=== PATIENT | male | born 1995 | race Hispanic/Latino ===

== ENCOUNTER 2023-05-02 16:59 | Emergency (ER) | payer SELFPAY ==
[~2023-05-02 16:59] MED LIST: Iopamidol-370 76% 500 ML MDV (1 ML CHARGE) ONE
[2023-05-02] MEDS ORDERED: Ondansetron PF 4 MG/2 ML Vial ONE (17:31)
[2023-05-02] MEDS ORDERED: Famotidine/PF 20 mg/2ml Vial ONE (17:31)
[2023-05-02] MEDS ORDERED: Mag-Al 1200 mg/1200 mg/30 ML UDCUP ONE (17:31)
[2023-05-02] MEDS ORDERED: Ketorolac Tromethamine 30 MG/ML VIAL ONE (17:31)
[2023-05-02 18:16] LABS: #Monocytes 0.8 thou/uL (0.11-0.59); #Neutrophils 6.3 thou/uL (1.40-6.50); %Basophils 0.3 % (0.0-1.0); %Eosinophils 0.1 % (0.0-10.0); %Lymphocytes 9.6 % (21.0-51.0); %Monocytes 10.4 % (0.0-10.0); %Neutrophils 79.3 % (42.0-75.0); Hemoglobin 14.5 g/dL (14.0-18.0); Mean Corpuscular HGB CONC 34.5 g/dL (32.0-36.0); Mean Corpuscular Hemoglobin 30.4 pg (27.0-31.0); Mean Corpuscular Volume 88.1 fl (78.0-98.0); Mean Platelet Volume 11.2 fL (7.4-10.4); Platelet Count 120 10x3/uL (130-400); RBC Distribution Width 11.7 % (11.5-14.5); Red Blood Cell (RBC) Count 4.77 mill/uL (4.70-6.10); White Blood Cell (WBC) Count 7.9 10x3/uL (4.8-10.8)
[2023-05-02 18:45] LABS: Troponin I Less than 0.010 ng/mL (< 0.028)
[2023-05-02 18:53] LABS: ALT (SGPT) 18 U/L (8-55); AST (SGOT) 13 U/L (5-34); Alkaline Phosphatase 73 U/L (40-110); Anion Gap 13 mmol/L (10-20); BUN (Urea Nitrogen) 8 mg/dL (8.9-20.6); Bilirubin, Total 0.5 mg/dL (0.2-1.2); Calcium 8.7 mg/dL (7.8-10.44); Carbon Dioxide 20 mmol/L (22-29); Chloride 102 mmol/L (98-107); Glucose 101 mg/dL (70-105); Lipase 5 U/L (8-78); Potassium 3.9 mmol/L (3.5-5.1); Protein, Total 7.2 g/dL (6.0-8.3); Sodium 131 mmol/L (136-145)
[2023-05-02 19:12] LABS: Albumin 3.9 g/dL (3.5-5.0); Calc. Creatinine Clearance 0 mL/min (70-130); Estimated GFR 121; Globulin 3.3 g/dL (2.4-3.5)
[2023-05-02 19:44] LABS: Bacteria/HPF None Seen HPF (None Seen); Bilirubin Negative (Negative); Blood, Urine Negative (Negative); CAUTI Indications for Culture Dysuria,urgency,freq; Clarity Clear (Clear); Glucose, Urine (Dipstick) Normal (Negative); Ketone, Urine 80 mg/dL (Negative); Leukocyte Negative Leu/uL (Negative); Nitrite Negative (Negative); Protein, Urine (Dipstick) 100 mg/dL (Neg-Trace); RBC/HPF 0-3 HPF (0-3); Specific Gravity, Urine 1.031 (1.002-1.036); Squamous Epithelial 0-3 HPF (0-3); Urobilinogen Greater than 12 mg/dL (Less than 2); WBC/HPF 0-3 HPF (0-3); pH, Urine 6.5 (5.0-9.0)
[2023-05-02 19:46] LABS: Urine Culture Reflex No No
[2023-05-02] MEDS ORDERED: Diazepam 5 MG TAB ONE (21:17)
== END 2023-05-02 21:28 | disposition home or self-care (01) ==
LOC: ERS 16:59
DX: R07.89 Other chest pain (principal); E86.0 Dehydration; R11.2 Nausea with vomiting, unspecified; R19.7 Diarrhea, unspecified; M54.50 Low back pain, unspecified
CPT/HCPCS: 36415; 71045; 71275; 80053; 81001; 83690; 84484; 85025; 93005; 96361; 96374; 96375; J1885; J2405; Q9967; S0028

== ENCOUNTER 2023-05-04 17:04 | Emergency (ER) | payer SELFPAY ==
[2023-05-04] MEDS ORDERED: Ketorolac Tromethamine 30 MG/ML VIAL ONE (17:27)
[2023-05-04] MEDS ORDERED: Dexameth. Sod Phosp. 10 MG/ML (CHEMO USE ONLY) ONE (18:56)
== END 2023-05-04 19:10 | disposition home or self-care (01) ==
LOC: ERS 17:04
DX: R07.89 Other chest pain (principal)
CPT/HCPCS: 71045; 96372; J1100; J1885

== ENCOUNTER 2023-05-07 02:52 | Inpatient (IN) | payer SELFPAY ==
[2023-05-07] MEDS ORDERED: Ketorolac Tromethamine 30 MG/ML VIAL ONE (03:11)
[2023-05-07 03:51] LABS: #Monocytes 1.5 thou/uL (0.11-0.59); #Neutrophils 14.5 thou/uL (1.40-6.50); %Basophils 0.2 % (0.0-1.0); %Eosinophils 0.2 % (0.0-10.0); %Lymphocytes 9.6 % (21.0-51.0); %Monocytes 8.2 % (0.0-10.0); %Neutrophils 80.8 % (42.0-75.0); Hematocrit 40.7 % (42.0-52.0); Hemoglobin 14.3 g/dL (14.0-18.0); Mean Corpuscular HGB CONC 35.1 g/dL (32.0-36.0); Mean Corpuscular Hemoglobin 30.1 pg (27.0-31.0); Mean Corpuscular Volume 85.7 fl (78.0-98.0); Mean Platelet Volume 9.9 fL (7.4-10.4); Platelet Count 245 10x3/uL (130-400); RBC Distribution Width 11.9 % (11.5-14.5); Red Blood Cell (RBC) Count 4.75 mill/uL (4.70-6.10)
[2023-05-07 04:15] LABS: ALT (SGPT) 65 U/L (8-55); AST (SGOT) 21 U/L (5-34); Albumin 3.6 g/dL (3.5-5.0); Alkaline Phosphatase 89 U/L (40-110); Anion Gap 14 mmol/L (10-20); BUN (Urea Nitrogen) 7 mg/dL (8.9-20.6); Bilirubin, Total 0.4 mg/dL (0.2-1.2); CK (CPK) 340 U/L (30-200); Calc. Creatinine Clearance 0 mL/min (70-130); Calcium 9.4 mg/dL (7.8-10.44); Carbon Dioxide 23 mmol/L (22-29); Chloride 100 mmol/L (98-107); Estimated GFR 128; Globulin 4.2 g/dL (2.4-3.5); Glucose 111 mg/dL (70-105); Potassium 3.8 mmol/L (3.5-5.1); Protein, Total 7.8 g/dL (6.0-8.3); Sodium 133 mmol/L (136-145)
[2023-05-07 04:17] LABS: Troponin I Less than 0.010 ng/mL (< 0.028)
[2023-05-07] MEDS ORDERED: Cefepime 2 GM VIAL ONE (04:51)
[2023-05-07] MEDS ORDERED: Vancomycin 1 GM/200 ML (FROZEN) BAG ONE (05:50)
[2023-05-07] MEDS ORDERED: Acetaminophen 325 MG TAB PO PRN (07:09)
[2023-05-07] MEDS ORDERED: Senokot S 8.6-50 MG TAB PO PRN (07:09)
[2023-05-07] MEDS ORDERED: Bisacodyl 10 MG SUPP PR PRN (07:09)
[2023-05-07] MEDS ORDERED: Bisacodyl 5 MG TAB PO PRN (07:09)
[2023-05-07] MEDS ORDERED: Ondansetron PF 4 MG/2 ML Vial IVP PRN (07:16)
[2023-05-07] MEDS ORDERED: Sodium Chloride 0.9% 1,000 ML IV SCH (07:30)
[2023-05-07 08:53] LABS: SARS-CoV-2 NAA Rapid Test Not Detected (NotDetected)
[2023-05-07] MEDS ORDERED: CEFAZOLIN 2 GM VIAL ONE (08:56)
[2023-05-07] MEDS ORDERED: fentaNYL 50 mcg/mL 1 mL Vial ONE ×3 (09:59→11:40)
[2023-05-07] MEDS ORDERED: Bupivacaine PF 0.5% 30 ML VIAL ONE (10:22)
[2023-05-07] MEDS ORDERED: EPINEPHrine 1 MG/ML AMP ONE (10:22)
[2023-05-07] MEDS ORDERED: fentaNYL PF 100 MCG/2 ML SYRINGE ONE (10:25)
[2023-05-07] MEDS ORDERED: Dexmedetomidine 200 MCG/2 ML VIAL ONE (10:25)
[2023-05-07] MEDS ORDERED: PROPOFOL 200 MG/20 ML VIAL ONE (10:45)
[2023-05-07] MEDS ORDERED: Iopamidol-370 76% 500 ML MDV (1 ML CHARGE) ONE (10:45)
[2023-05-07] MEDS ORDERED: Lidocaine 1% PF 5 ML VIAL ONE (10:45)
[2023-05-07] MEDS ORDERED: Ondansetron PF 4 MG/2 ML Vial ONE (10:45)
[2023-05-07] MEDS ORDERED: Ondansetron HCl/PF 4 MG/2 ML Vial IVP PRN (11:20)
[2023-05-07] MEDS ORDERED: HYDROmorphone 2 MG/ML VIAL SLOW IVP PRN (11:20)
[2023-05-07] MEDS ORDERED: PACU-Morphine 4MG/ML VIAL SLOW IVP PRN (11:20)
[2023-05-07] MEDS ORDERED: Meperidine HCl/PF 25 MG/ML VIAL SLOW IVP PRN (11:20)
[2023-05-07] MEDS ORDERED: Promethazine HCl 25 MG/ML VIAL IM PRN (11:20)
[2023-05-07] MEDS: Morphine 4 MG/ML VIAL SLOW IVP PRN (12:26)
[2023-05-07 12:43] VITALS: BMI 23.4
[2023-05-07] MEDS ORDERED: VANCOMYCIN IVPB PRN (12:54)
[2023-05-07 13:14] LABS: Amphetamine Not Detected (NotDetected); Barbiturates Screen Not Detected (NotDetected); Benzodiazepine Screen Detected (NotDetected); Cocaine Metabolite Screen Not Detected (NotDetected); Methadone Not Detected (NotDetected); Methamphetamine Not Detected (NotDetected); Opiate Screen Detected (NotDetected); Oxycodone Screen Not Detected (NotDetected); Phencyclidine (PCP) Not Detected (NotDetected); THC/Cannabinoid Screen Detected (NotDetected); Tricyclic Screen Not Detected (NotDetected)
[2023-05-07] MEDS: Vancomycin 1 GM in Premix Bag 1 BAG IVPB SCH ×2 (13:31→21:55)
[2023-05-07] MEDS: traMADol HCl 50 MG TAB PO PRN ×2 (13:32→21:56)
[2023-05-07] MEDS: metroNIDAZOLE 500 MG TAB PO SCH ×2 (16:26→21:55)
[2023-05-07] MEDS: Cefepime 2 GM in Sodium Chloride 0.9% 100 ML IVPB SCH (17:41)
[2023-05-07] MEDS: Acetaminophen 325 MG TAB PO PRN ×2 (17:41→21:55)
[2023-05-08] MEDS: Vancomycin 1 GM in Premix Bag 1 BAG IVPB SCH (05:30)
[2023-05-08] MEDS: Cefepime 2 GM in Sodium Chloride 0.9% 100 ML IVPB SCH ×2 (05:30→18:42)
[2023-05-08 05:32] LABS: #Eosinphils 0.1 thou/uL (0.0-0.7); #Monocytes 1.2 thou/uL (0.11-0.59); #Neutrophils 10.4 thou/uL (1.40-6.50); %Basophils 0.2 % (0.0-1.0); %Lymphocytes 13.3 % (21.0-51.0); %Monocytes 8.5 % (0.0-10.0); %Neutrophils 76.1 % (42.0-75.0); Hematocrit 36.6 % (42.0-52.0); Hemoglobin 12.4 g/dL (14.0-18.0); Mean Corpuscular HGB CONC 33.9 g/dL (32.0-36.0); Mean Corpuscular Volume 88.6 fl (78.0-98.0); Mean Platelet Volume 10.1 fL (7.4-10.4); Platelet Count 249 10x3/uL (130-400); RBC Distribution Width 12.1 % (11.5-14.5); Red Blood Cell (RBC) Count 4.13 mill/uL (4.70-6.10); White Blood Cell (WBC) Count 13.7 10x3/uL (4.8-10.8)
[2023-05-08] MEDS: traMADol HCl 50 MG TAB PO PRN ×2 (05:33→14:58)
[2023-05-08] MEDS: Acetaminophen 325 MG TAB PO PRN (05:35)
[2023-05-08 05:56] LABS: Vancomycin, Trough 10.3 ug/mL
[2023-05-08 06:00] LABS: ALT (SGPT) 39 U/L (8-55); AST (SGOT) 17 U/L (5-34); Albumin 3.1 g/dL (3.5-5.0); Alkaline Phosphatase 83 U/L (40-110); Anion Gap 13 mmol/L (10-20); BUN (Urea Nitrogen) 6 mg/dL (8.9-20.6); Bilirubin, Direct 0.3 mg/dL (0.1-0.3); Bilirubin, Total 0.5 mg/dL (0.2-1.2); CK (CPK) 941 U/L (30-200); CRP (Inflammatory) 21.82 mg/dL (= or < 0.5); Calc. Creatinine Clearance 137 mL/min (70-130); Carbon Dioxide 25 mmol/L (22-29); Cardiac Risk 5.8 (Less than 4.5); Chloride 100 mmol/L (98-107); Cholesterol 98 mg/dl (< 200 Desired); Estimated GFR 127; Glucose 96 mg/dL (70-105); HDL Cholesterol 17 mg/dL (>60 Neg Risk); LDL Cholesterol, Calculated 63 mg/dL; Magnesium 1.8 mg/dL (1.6-2.6); Potassium 3.8 mmol/L (3.5-5.1); Protein, Total 6.6 g/dL (6.0-8.3); Sodium 134 mmol/L (136-145); Triglycerides 89 mg/dL (Less than 150)
[2023-05-08 06:29] LABS: HIV (1/2) Antibody/Antigen Non-Reactive (NonReactive); HIV 1/2 INDEX 0.19 S/CO (<1.00); Hep C IgG Ab Non-Reactive S/CO (NonReactive); Hep C Index 0.09 S/CO (0-0.79); Thyroid Stimulating Hormone 2.5213 uIU/mL (0.35-4.94)
[2023-05-08] MEDS ORDERED: Vancomycin HCl 250 MG in Sodium Chloride 0.9% 100 ML IVPB SCH (07:45)
[2023-05-08] MEDS: metroNIDAZOLE 500 MG TAB PO SCH ×3 (09:30→20:43)
[2023-05-08] MEDS: Morphine 4 MG/ML VIAL SLOW IVP PRN ×2 (11:41→20:44)
[2023-05-08] MEDS: Sodium Chloride 0.9% 1,000 ML IV SCH ×2 (13:19→20:44)
[2023-05-08] MEDS: VANCOMYCIN 1.25 GM/250 ML BAG 1.25 GM in Premix Bag 1 BAG IVPB SCH ×2 (14:55→21:40)
[2023-05-08] MEDS ORDERED: Acetaminophen 500 MG TAB PO SCH (21:30)
[2023-05-09] MEDS: traMADol HCl 50 MG TAB PO PRN (05:08)
[2023-05-09] MEDS: Sodium Chloride 0.9% 1,000 ML IV SCH ×3 (05:09→21:24)
[2023-05-09] MEDS: Cefepime 2 GM in Sodium Chloride 0.9% 100 ML IVPB SCH (05:09)
[2023-05-09 05:15] LABS: #Basophils 0.1 thou/uL (0.0-0.2); #Eosinphils 0.1 thou/uL (0.0-0.7); #Monocytes 0.9 thou/uL (0.11-0.59); #Neutrophils 6.7 thou/uL (1.40-6.50); %Basophils 0.5 % (0.0-1.0); %Eosinophils 1.4 % (0.0-10.0); %Lymphocytes 20.9 % (21.0-51.0); %Monocytes 8.8 % (0.0-10.0); %Neutrophils 67.4 % (42.0-75.0); Hematocrit 35.7 % (42.0-52.0); Hemoglobin 12.1 g/dL (14.0-18.0); Mean Corpuscular HGB CONC 33.9 g/dL (32.0-36.0); Mean Corpuscular Hemoglobin 30.5 pg (27.0-31.0); Mean Corpuscular Volume 89.9 fl (78.0-98.0); Mean Platelet Volume 9.7 fL (7.4-10.4); Platelet Count 276 10x3/uL (130-400); Red Blood Cell (RBC) Count 3.97 mill/uL (4.70-6.10); White Blood Cell (WBC) Count 9.9 10x3/uL (4.8-10.8)
[2023-05-09 05:39] LABS: Vancomycin, Trough 13.4 ug/mL
[2023-05-09 05:41] LABS: Anion Gap 11 mmol/L (10-20); BUN (Urea Nitrogen) 5 mg/dL (8.9-20.6); CK (CPK) 714 U/L (30-200); Calc. Creatinine Clearance 134 mL/min (70-130); Calcium 9.2 mg/dL (7.8-10.44); Carbon Dioxide 25 mmol/L (22-29); Chloride 103 mmol/L (98-107); Estimated GFR 126; Glucose 100 mg/dL (70-105); Magnesium 1.9 mg/dL (1.6-2.6); Sodium 135 mmol/L (136-145)
[2023-05-09] MEDS: VANCOMYCIN 1.25 GM/250 ML BAG 1.25 GM in Premix Bag 1 BAG IVPB SCH (05:59)
[2023-05-09] MEDS: metroNIDAZOLE 500 MG TAB PO SCH ×2 (09:12→18:10)
[2023-05-09] MEDS: Morphine 4 MG/ML VIAL SLOW IVP PRN (12:03)
[2023-05-09] MEDS: CEFAZOLIN 1 GM in Sodium Chloride 0.9% 100 ML IVPB SCH ×2 (14:04→21:15)
[2023-05-09 15:55] LABS: #Eosinphils 0.1 thou/uL (0.0-0.7); #Monocytes 0.7 thou/uL (0.11-0.59); #Neutrophils 7.1 thou/uL (1.40-6.50); %Basophils 0.4 % (0.0-1.0); %Eosinophils 1.2 % (0.0-10.0); %Lymphocytes 19.3 % (21.0-51.0); %Monocytes 7.2 % (0.0-10.0); %Neutrophils 70.6 % (42.0-75.0); Hematocrit 41.9 % (42.0-52.0); Mean Corpuscular HGB CONC 33.4 g/dL (32.0-36.0); Mean Corpuscular Volume 89.7 fl (78.0-98.0); Mean Platelet Volume 9.8 fL (7.4-10.4); Platelet Count 363 10x3/uL (130-400); Red Blood Cell (RBC) Count 4.67 mill/uL (4.70-6.10); White Blood Cell (WBC) Count 10.1 10x3/uL (4.8-10.8)
[2023-05-09] MEDS ORDERED: Pantoprazole 40 MG VIAL IVP SCH (16:00)
[2023-05-10 05:58] LABS: #Eosinphils 0.2 thou/uL (0.0-0.7); #Monocytes 0.9 thou/uL (0.11-0.59); %Basophils 0.4 % (0.0-1.0); %Lymphocytes 29.2 % (21.0-51.0); %Monocytes 10.6 % (0.0-10.0); %Neutrophils 56.1 % (42.0-75.0); Mean Corpuscular HGB CONC 33.3 g/dL (32.0-36.0); Mean Corpuscular Hemoglobin 29.9 pg (27.0-31.0); Mean Corpuscular Volume 89.7 fl (78.0-98.0); Mean Platelet Volume 9.6 fL (7.4-10.4); Platelet Count 340 10x3/uL (130-400); RBC Distribution Width 11.9 % (11.5-14.5); Red Blood Cell (RBC) Count 4.35 mill/uL (4.70-6.10); White Blood Cell (WBC) Count 8.9 10x3/uL (4.8-10.8)
[2023-05-10] MEDS: Sodium Chloride 0.9% 1,000 ML IV SCH (06:07)
[2023-05-10] MEDS: CEFAZOLIN 1 GM in Sodium Chloride 0.9% 100 ML IVPB SCH (06:07)
[2023-05-10 06:20] LABS: Anion Gap 13 mmol/L (10-20); BUN (Urea Nitrogen) 7 mg/dL (8.9-20.6); CK (CPK) 478 U/L (30-200); Calc. Creatinine Clearance 123 mL/min (70-130); Calcium 9.5 mg/dL (7.8-10.44); Carbon Dioxide 24 mmol/L (22-29); Chloride 103 mmol/L (98-107); Estimated GFR 123; Glucose 96 mg/dL (70-105); Magnesium 1.9 mg/dL (1.6-2.6); Potassium 4.3 mmol/L (3.5-5.1); Sodium 136 mmol/L (136-145)
[2023-05-10] MEDS ORDERED: Pantoprazole 40 MG VIAL IVP SCH (09:00)
[2023-05-10] MEDS: traMADol HCl 50 MG TAB PO PRN (10:02)
[2023-05-10 13:10] VITALS: BP 114/74; TEMP 98.4
[2023-05-12 00:07] LABS: QuantiFERON-TB Gold Plus POSITIVE (Negative)
== END 2023-05-10 14:15 | disposition home or self-care (01) | DRG 854 ==
LOC: ERS 02:52 → SUATTDRO 02:52 → SURG A 07:09
PROVIDERS: ADMIT Family Medicine; ATTEND Family Medicine
PROC: 0K9 Muscles, Drainage (ICD-10-PCS; principal; 2023-05-07)
PROC: 3E033XZ Introduction of Vasopressor into Peripheral Vein, Percutaneous Approach (ICD-10-PCS; 2023-05-07)
PROC: 3E03329 Introduction of Other Anti-infective into Peripheral Vein, Percutaneous Approach (ICD-10-PCS; 2023-05-07)
DX: A41.9 Sepsis, unspecified organism (principal); K92.0 Hematemesis; L02.213 Cutaneous abscess of chest wall; M62.82 Rhabdomyolysis; R22.2 Localized swelling, mass and lump, trunk; B95.4 Other streptococcus as the cause of diseases classified elsewhere; Z20.822 Contact with and (suspected) exposure to COVID-19; Z79.899 Other long term (current) drug therapy
CPT/HCPCS: 36415; 71260; 80048; 80053; 80061; 80076; 80202; 80306; 82550; 83036; 83605; 83735; 84443; 84484; 85025; 85652; 86140; 86480; 86803; 86850; 86900; 86901; 87040; 87070; 87077; 87205; 87389; 93005; 96365; 96367; 96372; 96375; 97139; C9113; J0171; J0690; J0692; J1650; J1885; J2270; J2405; J2704; J3010; J3370; J3370-JW; J3490; J7050; Q9967; S0020; U0002